=== PATIENT | male | born 1925 | race Caucasian/White ===

== ENCOUNTER 2016-11-15 16:30 | Emergency (ER) | payer MEDICARE, OTHER ==
[~2016-11-15] VITALS: Ht 182.9 cm; Wt 80.0 kg
[~2016-11-15 16:30] MED LIST: ALLO100 PO; LEVA750T PO
[2016-11-15 16:36] VITALS: BP 139/63; PULSE 70; RESP 16; TEMP 98; O2SAT 94
[2016-11-15] MEDS ORDERED: AVOD0.5C PO (16:50)
[2016-11-15] MEDS ORDERED: ALLO100T PO (16:50)
[2016-11-15] MEDS ORDERED: VANCOMYCIN INJ 1,000 MG in SODIUM CHLOR 0.9% 250 ML INJ 250 ML IV ONE (17:00)
[2016-11-15] MEDS ORDERED: DOXY100C PO (17:03)
[2016-11-15] MEDS ORDERED: LEVA750T PO (17:03)
--- NOTE | 2016-11-15 17:14 | PD ---
HPI Chief Complaint: Edema Time Seen by Provider: 16:46 Travel History International Travel<30 days: No Contact w/Intl Traveler<30days: No Traveled to known affect area: No History of Present Illness HPI This patient complains of some redness and swelling in the right foot. He noticed it today but doesn't really know how long its been going on. Severity is moderate. No alleviating factors. No injury or fever. He has a chronically deformed right great toe has he's had gout and surgery of that toe. He does follow with podiatry regularly. 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 They do not know why he has neuropathy. PFSH Past Medical History Cancer: No Cardiovascular Problems: No Diminished Hearing: No Gout: Yes Genitourinary: Yes (BPH) Immune Disorder: No Musculoskeletal: No Neurologic: No Psychiatric: No Reproductive: No Respiratory: Yes (PNEUMONIA) ?: Not Past Surgical History Abdominal Surgery: Yes (BILATERAL INGUINAL HERNIA REPAIR MORE THAN 20 YEARS AGO ) Appendectomy: Yes Tonsillectomy: Yes (AND ADNOIDS) Other Surgery: Yes (RIGHT GREAT TOE) Social History Alcohol Use: No Tobacco Use: No Substance Use: No Allergies-Medications (Allergen,Severity, Reaction): Coded Allergies: Sulfa (Verified Allergy, Mild, 11/15/16) Clindamycin (Unverified Allergy, Unknown, 11/15/16) DEVELOPES C DIFF Reported Meds & Prescriptions Reported Meds & Active Scripts Active Levaquin (Levofloxacin) 750 Mg Tab 750 Mg PO DAILY Doxycycline Hyclate 100 Mg Cap 100 Mg PO BID Reported Avodart (Dutasteride) 0.5 Mg Cap 0.5 Mg PO DAILY Allopurinol 100 Mg Tab 100 Mg PO DAILY Review of Systems General / Constitutional: No: Fever Eyes: No: Visual changes HENT: No: Headaches Cardiovascular: Positive: Edema, No: Chest Pain or Discomfort Respiratory: No: Shortness of Breath Gastrointestinal: No: Abdominal Pain Genitourinary: No: Dysuria Musculoskeletal: Positive: Edema, No: Pain Skin: Positive Change in Pigmentation, No Rash Neurologic: Positive: Sensory Disturbance, No: Weakness Psychiatric: No: Depression Endocrine: No: Polydipsia Hematologic/Lymphatic: No: Easy Bruising Physical Exam Narrative GENERAL: Well-nourished, well-developed patient in no apparent distress. SKIN: Warm and dry. HEAD: Atraumatic. Normocephalic. EYES: Pupils equal and round. No scleral icterus. No injection or drainage. ENT: No nasal bleeding or discharge. Mucous membranes pink and moist. NECK: Trachea midline. No JVD. CARDIOVASCULAR: Regular rate and rhythm. No murmur appreciated. RESPIRATORY: No accessory muscle use. Clear to auscultation. Breath sounds equal bilaterally. GASTROINTESTINAL: Abdomen soft, non-tender, nondistended. Hepatic and splenic margins not palpable. MUSCULOSKELETAL: He has chronic appearing deformity at the right great toe with enlargement of the toe. He has a scabbed callus underneath the toe. There is a blister near by without any drainage. No clubbing. No cyanosis. Has fungal thickened toenails. There is some swelling and erythema of the foot and ankle region. NEUROLOGICAL: Awake and alert. No obvious cranial nerve deficits. Motor grossly within normal limits. Normal speech. PSYCHIATRIC: Appropriate mood and affect; insight and judgment normal. Data Data Last Documented VS Vital Signs Date Time Temp Pulse Resp B/P Pulse Ox O2 Delivery O2 Flow Rate FiO2 11/15/16 16:36 98.0 70 16 139/63 94 Orders Vancomycin Inj (Vancomycin Inj) (11/15/16 17:00) Iv Access Insert/Monitor (11/15/16 16:59) Wound Culture And Gram Stain (11/15/16 16:59) MDM Medical Decision Making Medical Screen Exam Complete: Yes Emergency Medical Condition: Yes Medical Record Reviewed: Yes Differential Diagnosis Cellulitis, wound infection, gout Narrative Course I have reviewed the patient's electronic medical record. Patient has been here before with septicemia and gout IV placed I gave him 1 g IV vancomycin This clearly looks infectious and not DVT or inflammatory arthritis Patient has history of C. difficile colitis and does not want any clindamycin. We discussed risks and alternatives but he will need some antibiotics. Procedure note: Patient gives verbal consent to unroofing the blister underneath the great toe. I used an 11 blade scalpel to open it up I obtained a wound culture and Gram stain of it There was minimal drainage mostly serous No significant amount of pus I prescribed course of doxycycline and Levaquin He is allergic to sulfa and does not want clindamycin I'm trying to empirically cover MRSA He is going to call his coo and family physician Thursday for follow-up but return if he worsens at any point If he is not improved in 2-3 days or return and we will consider inpatient IV antibiotics at that point but I don't feel this rises to a level of hospitalization at this early time Diagnosis Primary Impression: Wound infection Additional Instructions: Follow-up with podiatry and family physician Return if he worsens Med/Other Pt SpecificInfo: Prescription(s) given Scripts Levofloxacin (Levaquin)750 Mg Qdg755 Mg PO DAILY #7 TAB Ref 0 Prov:Shakir Spring MD 11/15/16 Doxycycline Hyclate 100 Mg Cts261 Mg PO BID #20 CAP Ref 0 Prov:Shakir Spring MD 11/15/16 Disposition: 01 DISCHARGE HOME Condition: Stable Shakir Spring MD Nov 15, 2016 17:14
[2016-11-15 18:15] VITALS: BP 138/75
== END 2016-11-15 18:17 | disposition home or self-care (01) ==
LOC: PHED 16:30
DX: S90.421A Blister (nonthermal), right great toe, initial encounter (principal); B95.61 Methicillin susceptible Staphylococcus aureus infection as the cause of diseases classified elsewhere; M10.9 Gout, unspecified; N40.0 Benign prostatic hyperplasia without lower urinary tract symptoms; Z88.2 Allergy status to sulfonamides
CPT/HCPCS: 10140; 86403; 87070; 87186; 96365; 99283; J3370; J7050; 87205

== ENCOUNTER → 2017-01-20 | Outpatient (CLI) | payer MEDICARE ==
[~2017-01-20] MED LIST changes: -ALLO100 PO; +ALLO100T PO; +AVOD0.5C PO; +DOXY100C PO
[2017-01-20 09:38] LABS: AUTOMATED NEUTROPHIL # 3.5 TH/MM3 (1.8-7.7); BASOPHIL % 0.2 % (0.0-2.0); EOSINOPHIL # 0.4 TH/MM3 (0-0.4); EOSINOPHIL % 6.1 % (0.0-4.0); HEMATOCRIT 37.6 % (39.0-51.0); HEMO FLAGS DIFF FINAL; LYMPHOCYTE # 1.4 TH/MM3 (1.0-4.8); MEAN CELL VOLUME 98.7 FL (80.0-100.0); MEAN CORPUSCULAR HEMOGLOBIN 33.7 PG (27.0-34.0); MEAN CORPUSCULAR HGB CONC 34.1 % (32.0-36.0); MONO % 14.3 % (0.0-8.0); NEUT % 56.4 % (16.0-70.0); PLATELET COUNT 193 TH/MM3 (150-450); RED BLOOD COUNT 3.81 MIL/MM3 (4.50-5.90); RED CELL DISTRIBUTION WIDTH 12.8 % (11.6-17.2); WHITE BLOOD COUNT 6.2 TH/MM3 (4.0-11.0)
[2017-01-20 10:16] LABS: BICARBONATE 31.1 MEQ/L (21.0-32.0); POTASSIUM 3.8 MEQ/L (3.5-5.1); URIC ACID 5.9 MG/DL (2.6-7.2)
== END ==
LOC: PLAB 07:46
PROVIDERS: ATTEND Family Medicine
DX: D64.9 Anemia, unspecified (principal); M10.9 Gout, unspecified
CPT/HCPCS: 36415; 80048; 84550; 85025